=== PATIENT | female | born 1960 | race Caucasian/White ===

== ENCOUNTER 2021-06-27 12:31 | Outpatient (CLI) | payer MEDICARE, MEDICAID, SELFPAY ==
--- NOTE | ~2021-06-27 | MR_ITS ---
EXAMINATION: MR cervical spine wo/w con DATE: 06/27/2021 15:01 INDICATION: Multiple sclerosis. TECHNIQUE: Magnetic resonance imaging (MRI) of the cervical spine was performed without and with 11 m L MultiHance intravenous contrast. Sequences included sagittal and axial T2-weighted FSE, sagittal T2 -weighted FS FSE, and sagittal and axial T1-weighted FSE. Postcontrast sequences included sagittal an d axial T1-weighted FS FSE. COMPARISON: None FINDINGS: There is 14 degrees levoscoliosis of cervicothoracic spine. Vertebral body heights are norm al. There is moderately decreased disc height at C4-C5 and C6-C7 and severely decreased disc height a t C5-C6. The spinal cord signal intensity is normal. The following disc levels are specifically discu ssed: C2-C3: The disc does not extend beyond the endplate margin. There is mild bilateral uncovertebral rosalva nt osteoarthritis. There is severe bilateral facet joint osteoarthritis. There is mild bilateral neur al foraminal stenosis. There is no central canal stenosis. C3-C4: The disc is bulging. There is moderate bilateral uncovertebral joint osteoarthritis. There is severe right and mild left facet joint osteoarthritis. There is mild right neural foraminal stenosis. There is mild central canal stenosis. C4-C5: The disc is bulging. There is severe bilateral uncovertebral joint osteoarthritis. There is se spencer right and mild left facet joint osteoarthritis. There is moderate bilateral neural foraminal wily nosis. There is mild central canal stenosis. C5-C6: The disc is bulging. There is severe bilateral uncovertebral joint osteoarthritis. There is mo derate bilateral facet joint osteoarthritis. There is moderate bilateral neural foraminal stenosis. T here is mild central canal stenosis. C6-C7: The disc is bulging. There is severe bilateral uncovertebral joint osteoarthritis. There is mi ld bilateral facet joint osteoarthritis. There is mild right and moderate left neural foraminal steno sis. There is mild central canal stenosis. C7-T1: The disc does not extend beyond the endplate margin. There is no uncovertebral joint osteoarth ritis. There is severe bilateral facet joint osteoarthritis. There is mild bilateral neural foraminal stenosis. There is no central canal stenosis. IMPRESSION: 1. No evidence of multiple sclerosis. 2. Severe cervical spondylosis. 3. Cervicothoracic levoscoliosis. Reviewed, dictated and finalized at location B. GE HELPER
--- NOTE | ~2021-06-27 | MR_ITS ---
EXAMINATION: MR brain/brain stem wo/w con DATE: 06/27/2021 15:02 INDICATION: Multiple sclerosis. TECHNIQUE: Magnetic resonance imaging (MRI) of the brain and brainstem was performed without and with 11 mL MultiHance intravenous contrast. Sequences included sagittal and axial T1-weighted FLAIR, axia l T1-weighted FSE, axial diffusion-weighted FS EPI, sagittal T2-weighted FLAIR, axial T2*-weighted GR E, axial T2-weighted FLAIR Propeller, and axial T2-weighted Propeller. Postcontrast sequences include d axial, coronal, and sagittal T1-weighted FSE. Apparent diffusion coefficient (ADC) maps were create d. COMPARISON: None. FINDINGS: There are greater than 40 lesions of increased T2-weighted signal intensity in the brain, m any which are confluent. Of these lesions, many are periventricular, many are juxtacortical, and none are infratentorial. None of the lesions enhance. There is no acute ischemic infarct or intracranial hemorrhage. There is mild mucosal thickening in the ethmoid sinuses. The orbits are normal. There is a trace left mastoid effusion. IMPRESSION: 1. Moderate nonspecific cerebral white matter disease, which may represent chronic small vessel ische erinn disease and/or multiple sclerosis. Reviewed, dictated and finalized at location B. CH ENGINE MARKETING SPECIALIST IMPRESSION: 1. Moderate nonspecific cerebral white matter disease, which may represent hearing aide technician norma small vessel ischemic disease and/or multiple sclerosis.
--- NOTE | ~2021-06-27 | MR_ITS ---
EXAMINATION: MR thoracic spine wo/w con DATE: 06/27/2021 15:02 INDICATION: Multiple sclerosis. TECHNIQUE: Magnetic resonance imaging (MRI) of the thoracic spine was performed without and with 11 m L MultiHance intravenous contrast. Sequences included sagittal and axial T2-weighted FSE, sagittal T2 -weighted FS FSE, and sagittal and axial T1-weighted FSE. Postcontrast sequences included sagittal an d axial T1-weighted FS FSE. COMPARISON: None FINDINGS: There is 10 degrees dextroscoliosis of thoracic spine. There is levoscoliosis of cervicotho racic spine. There is a burst fracture of superior endplate of T8 with 1/5 loss of height, bone marro w edema, and retropulsion of bone 1 mm into central spinal canal. There are two lesions of increased T2-weighted signal intensity in T5 vertebral body. There is mildly decreased disc height at T6-T7, T7 -T8, and T8-T9. At T7-T8, there is a left central protrusion with mild central canal stenosis. There is multilevel mild facet joint osteoarthritis. No neural foraminal stenosis. The spinal cord signal i ntensity is normal. IMPRESSION: 1. No evidence of multiple sclerosis. 2. T8 burst fracture, likely subacute. 3. Mild thoracic spondylosis. 4. T5 vertebral body lesions. In the absence of known malignancy, these findings are likely atypical hemangiomas. Reviewed, dictated and finalized at location B. GN PAINTER IMPRESSION: 1. No evidence of multiple sclerosis. 2. T8 burst fracture, likely subacute. 3. Mild thoracic spondylosis. 4. T5 vertebral body lesions. In the absence of known malignancy, these finding s are likely atypical hemangiomas.
[2021-06-27 13:08] LABS: Estimated Glomerular Filt Rate > 60
== END 2021-06-27 12:32 | disposition home or self-care (01) ==
LOC: ANHIMG 12:38
PROVIDERS: PCP Family Medicine; Visit Provider Psychiatry & Neurology Neurology
DX: G35 Multiple sclerosis (principal); S22.061A Stable burst fracture of T7-T8 vertebra, initial encounter for closed fracture; M47.814 Spondylosis without myelopathy or radiculopathy, thoracic region; M47.813 Spondylosis without myelopathy or radiculopathy, cervicothoracic region; M41.9 Scoliosis, unspecified; R90.82 White matter disease, unspecified
CPT/HCPCS: 70553; 72156; 72157; A9577

== ENCOUNTER 2023-11-16 08:16 | Outpatient (CLI) | payer MEDICARE, MEDICAID, SELFPAY ==
--- NOTE | ~2023-11-16 | MR_ITS ---
EXAMINATION: MR brain/brain stem wo/w con DATE: 11/16/2023 10:14 INDICATION: Multiple sclerosis. TECHNIQUE: Magnetic resonance imaging (MRI) of the brain and brainstem was performed without and with 11 mL MultiHance intravenous contrast. COMPARISON: None. FINDINGS: There are many lesions of increased T2-weighted signal intensity in the cerebral white jasson er including periventricular and juxtacortical lesions. Lesions are confluent in the deep callejas matter bilaterally. No lesions enhance. There is no infratentorial lesion. There is no acute ischemic infar ct or intracranial hemorrhage. The ventricles are normal. There is mild mucosal thickening in the eth moid sinuses. The orbits are normal. There are trace mastoid effusions. IMPRESSION: 1. Moderate nonspecific cerebral white matter disease, which may be chronic small vessel ischemic dis ease and/or multiple sclerosis. Reviewed, dictated and finalized at location E. IMPRESSION: 1. Moderate nonspecific cerebral white matter disease, which may be chronic sma ll vessel ischemic disease and/or multiple sclerosis.
--- NOTE | ~2023-11-16 | MR_ITS ---
EXAMINATION: MR cervical spine wo/w con DATE: 11/16/2023 10:14 INDICATION: Multiple sclerosis TECHNIQUE: Magnetic resonance imaging (MRI) of the cervical spine was performed without and with 11 m L Multihance intravenous contrast. Sequences included sagittal T2-weighted FSE, sagittal T2-weighted FS FSE, sagittal T1-weighted FSE, axial T2-weighted FSE, and axial T1-weighted SE. Postcontrast seque nces included sagittal T1-weighted FS FSE, and axial T1-weighted FS SE. COMPARISON: None FINDINGS: 10 degrees cervical levocurvature. Sagittal alignment is normal. Vertebral body heights are normal. Bone marrow signal intensity is normal. Moderate to severe disc height loss at C4-C5 through C6-C7. Cord signal intensity is normal. Likely benign 5 mm T2 hyperintense nodule at the inferior left thyr oid. Cervical soft tissues are otherwise unremarkable. No abnormally enhancing lesions identified. Th e following disc levels are specifically discussed: C2-C3: The disc does not extend beyond the endplate margin. There is mild bilateral uncovertebral rosalva nt osteoarthritis. There is severe bilateral facet joint osteoarthritis. There is mild bilateral neur al foraminal stenosis. There is no central canal stenosis. C3-C4: Disc is bulging. There is moderate left and severe right uncovertebral joint osteoarthritis. T here is moderate left and severe right facet joint osteoarthritis. There is moderate right and mild l eft neural foraminal stenosis. There is mild central canal stenosis. C4-C5: Disc is bulging. There is severe bilateral uncovertebral joint osteoarthritis. There is severe right and moderate left facet joint osteoarthritis. There is moderate bilateral neural foraminal wily nosis. There is mild central canal stenosis. C5-C6: Disc is bulging. There is severe bilateral uncovertebral joint osteoarthritis. There is modera te bilateral facet joint osteoarthritis. There is moderate bilateral neural foraminal stenosis. There is mild central canal stenosis. C6-C7: Disc is bulging. There is severe bilateral uncovertebral joint osteoarthritis. There is mild b ilateral facet joint osteoarthritis. There is mild right and moderate left neural foraminal stenosis. There is mild central canal stenosis. C7-T1: The disc does not extend beyond the endplate margin. There is no uncovertebral joint osteoarth ritis. There is severe bilateral facet joint osteoarthritis. There is mild bilateral neural foraminal stenosis. There is no central canal stenosis. IMPRESSION: 1. No cord lesions suspicious for multiple sclerosis. 2. Mild cervical levocurvature with severe spondylosis. Reviewed, dictated and finalized at location A.
--- NOTE | ~2023-11-16 | MR_ITS ---
EXAMINATION: MR thoracic spine wo/w con DATE: 11/16/2023 10:14 INDICATION: Multiple sclerosis. TECHNIQUE: Magnetic resonance imaging (MRI) of the thoracic spine was performed without and with 11 m L MultiHance intravenous contrast. COMPARISON: Thoracic spine MRI 06/27/2021 FINDINGS: There is kyphosis of thoracic spine. There is a chronic compression fracture of T8 with veronica nges of vertebroplasty. There is mild chronic anterior wedging of T7 vertebral body. There are two ch ronic lesions of increased T2-weighted signal intensity in T5 vertebral body, likely atypical hemangi omas. The discs do not extend beyond the endplate margins. There is multilevel mild facet joint osteo arthritis. No neural foraminal stenosis in thoracic spine. The spinal cord signal intensity is normal . The conus medullaris is at L1. IMPRESSION: 1. Normal spinal cord. Reviewed, dictated and finalized at location E. IMPRESSION: 1. Normal spinal cord.
== END 2023-11-16 08:17 | disposition home or self-care (01) ==
PROVIDERS: PCP Family Medicine; Visit Provider Student in an Organized Health Care Education/Training Program
DX: G35 Multiple sclerosis (principal); R90.82 White matter disease, unspecified; M43.02 Spondylolysis, cervical region
CPT/HCPCS: 70553; 72156; 72157; A9577

== ENCOUNTER 2024-12-31 13:58 | Outpatient (CLI) | payer MEDICARE, MEDICAID, SELFPAY ==
--- NOTE | ~2024-12-31 | MR_ITS ---
MRI of the lumbar spine Clinical History: Left radiculopathy Technique: Axial T2-weighted images, and sagittal T1-weighted, T2-weighted, and and T2 fat-sat images were acquired. Findings: There is no fracture or sublocation of the lumbar spine. Vertebral bodies maintain normal h eight and alignment. No bone marrow signal abnormality seen. At L1-L2, L2-L3, L3-L4, there is no disc bulge or herniation. No spinal canal stenosis. There is mild left neural foraminal narrowing at L3-L4. Remaining neural foramen at these levels are preserved. At L4-L5, there is minimal disc bulge and mild facet arthropathy. No central canal stenosis. There is minimal bilateral neural foraminal narrowing, left worse than right. At L5-S1, there is mild disc bulge and moderate facet arthropathy. No central canal stenosis or defin ite neural foraminal narrowing. Paravertebral soft tissues are unremarkable. No abnormal postcontrast enhancement identified. Impression: Minimal degenerative spondylosis, as above. Reviewed, dictated and finalized at [facility]. Impression: Minimal degenerative spondylosis, as above.
== END 2024-12-31 13:59 | disposition home or self-care (01) ==
PROVIDERS: PCP Family Medicine; Visit Provider Psychiatry & Neurology Neurology
DX: G35 Multiple sclerosis (principal); M47.896 Other spondylosis, lumbar region; G89.29 Other chronic pain
CPT/HCPCS: 72158; A9579